=== PATIENT | male | born 1985 | race African-American/Black ===

== ENCOUNTER 2021-07-31 17:41 | Emergency (ER) | payer BC, OTHER ==
[~2021-07-31] VITALS: Ht 182.9 cm; Wt 86.2 kg
[2021-07-31 18:14] LABS: BASOPHILS 0.4 % (0.0-2.0); EOSINOPHILS 1.2 % (0.0-3.0); HEMATOCRIT 43.9 % (42.0-52.0); HEMOGLOBIN 15.1 gm/dL (14.0-18.0); LYMPHOCYTES 29.7 % (24.0-44.0); MCH 32.6 pg (26.0-34.0); MCHC 34.3 g/dL (28.0-37.0); MCV 95.1 fL (80.0-100.0); PLATELET COUNT 286 thou/uL (150-400); POLYS 58.7 % (36.0-66.0); RBC 4.62 mil/uL (4.50-6.00); WBC 8.4 thou/uL (4.0-11.0)
[2021-07-31 18:24] LABS: CALCIUM 9.6 mg/dL (8.5-10.1); CREATININE 0.8 mg/dL (0.7-1.3)
[2021-07-31 18:26] LABS: POTASSIUM 4.6 mmol/L (3.5-5.1)
[2021-07-31 18:33] LABS: ALBUMIN 4.9 g/dL (3.4-5.0); MAGNESIUM 1.8 mg/dL (1.8-2.4); TOTAL BILIRUBIN 0.9 mg/dL (0.2-1.0); TOTAL PROTEIN 8.1 g/dL (6.4-8.2)
[2021-07-31] MEDS ORDERED: HYDROXYZINE HCL25 M2 PO (19:07)
[2021-07-31 20:00] VITALS: BP 150/97
--- NOTE | 2021-08-02 08:11 | EKG ---
[address] [place] [address] ELECTROCARDIOGRAM REPORT Name: YISEL HILARIO [facility] [id number] Admission: 07/31/21 Attend Phys: Discharge: 07/31/21 Date of : 85 Report #: [id number] [facility] ED Test Date: 2021-07-31 Test Time: 17:44:39 Pat Name: YISEL HILARIO Department: Room: Gender: Ve Teacher: NIA : 1985 Requested By: Mirlande Lemons Order Number: [id number] MD: Jc Burgess Measurements Intervals [place] Rate: 86 P: 60 VA: 163 QRS: -39 QRSD: 95 T: -12 QT: 364 QTc: 436 Interpretive Statements Sinus rhythm Leftward axis RSR' in V1 or V2, probably normal variant Borderline T abnormalities, inferior leads No previous ECG available for comparison Electronically Signed On 08-02-2021 8:11:52 [employer] by Jc Burgess [email or web address] <ELECTRONICALLY SIGNED> By: Jc Burgess MD, [facility] 08/02/21 0811 1744 1744 Jc Burgess MD, FACC /EPI
== END 2021-07-31 20:01 | disposition home or self-care (01) ==
LOC: ER 17:41
PROVIDERS: Nurse Practitioner
DX: R07.89 Other chest pain (principal); F41.9 Anxiety disorder, unspecified